=== PATIENT | male | born 1955 | race Caucasian/White ===

== ENCOUNTER → 2017-10-06 13:38 | Outpatient (CLI) | payer OTHER, SELFPAY ==
[2017-10-06 16:50] LABS: Absolute Lymphocyte Count 2.21 X10^3/ul (0.83-4.51); Absolute Neutrophil Count 6.2 X10^3/uL (2.0-7.7); Basophil# 0.04 X10^3/uL; Basophil% 0.4 % (0-1); Eosinophil# 0.14 X10^3/uL; Eosinophils% 1.5 % (0-5); Hemoglobin 17.1 g/dl (13.0-16.5); Lymphocyte # 2.21 X10^3/ul (4.0); Lymphocyte % 23.5 % (19-41); Mean Corp Hgb Conc 33.5 g/gl (32-36); Mean Corpuscular Hgb 29.3 pg (27.0-32.0); Mean Corpuscular Volume 87.3 fL (80-94); Mean Platelet Vol. 10.3 fl (6.2-12.0); Monocyte# 0.76 X10^3/uL; Monocyte% 8.1 % (0-10); Neutrophil # 6.24 X10^3/uL (2.7-7.7); Neutrophil % 66.4 % (47-70); Platelet Count 268 K/mm3 (150-450); RBC Distribution Width CV 13.3 % (11.6-14.6); RBC Distribution Width SD 41.9 fl (35.1-43.9); Red Blood Count 5.84 M/mm3 (4.6-6.2); White Blood Count 9.4 K/mm3 (4.4-11.0)
[2017-10-06 16:53] LABS: POSITIVE COUNT NO; POSITIVE DIFFERENTIAL NO; POSITIVE MORPHOLOGY NO
[2017-10-06 17:49] LABS: AST(SGOT) 26 U/L (15-37); Alanine Aminotransfer ALT/SGPT 49 U/L (16-61); Albumin, Serum 4.1 g/dL (3.2-5.0); Alkaline Phosphatase 71 U/L (45-117); Anion Gap 10 (5-15); BUN 28 mg/dL (7-18); BUN/Creat Ratio 21.4 RATIO (10-20); Chloride 104 mmol/L (98-107); Creatinine, Serum 1.31 mg/dL (0.70-1.30); EST Glomerular Filtration Rate 59 mL/min (>60); Est Glom Filt Rate - Afr Amer 71 mL/min (>60); Glucose 106 mg/dL (70-110); Potassium 3.8 mmol/L (3.5-5.1); Protein, Total 8.1 g/dL (6.4-8.2); Sodium Level 141 mmol/L (136-145); Thyroid Stim Hormone (TSH) 1.52 uIU/mL (0.358-3.74)
[2017-10-08 11:54] LABS: Hep C Antibodies <0.1 s/co ratio (0.0-0.9)
== END ==
PROVIDERS: Family Provider Family Medicine Geriatric Medicine; PCP Family Medicine Geriatric Medicine; Visit Provider Family Medicine Geriatric Medicine
DX: I10 Essential (primary) hypertension (principal); Z13.89 Encounter for screening for other disorder; Z12.5 Encounter for screening for malignant neoplasm of prostate
CPT/HCPCS: 36415; 80053; 84443; 85025; 86803

== ENCOUNTER → 2017-11-23 15:37 | Outpatient (CLI) | payer OTHER, SELFPAY ==
[2017-11-23 15:50] LABS: Absolute Lymphocyte Count 1.84 X10^3/ul (0.83-4.51); Absolute Neutrophil Count 6.1 X10^3/uL (2.0-7.7); Basophil# 0.05 X10^3/uL; Basophil% 0.5 % (0-1); Eosinophils% 2.2 % (0-5); Hemoglobin 16.9 g/dl (13.0-16.5); Lymphocyte # 1.84 X10^3/ul (4.0); Lymphocyte % 19.8 % (19-41); Mean Corp Hgb Conc 35.2 g/gl (32-36); Mean Corpuscular Hgb 29.5 pg (27.0-32.0); Mean Corpuscular Volume 83.8 fL (80-94); Mean Platelet Vol. 9.4 fl (6.2-12.0); Monocyte# 1.05 X10^3/uL; Monocyte% 11.3 % (0-10); Neutrophil # 6.11 X10^3/uL (2.7-7.7); Platelet Count 275 K/mm3 (150-450); RBC Distribution Width CV 13.3 % (11.6-14.6); RBC Distribution Width SD 41.2 fl (35.1-43.9); Red Blood Count 5.73 M/mm3 (4.6-6.2); White Blood Count 9.3 K/mm3 (4.4-11.0)
[2017-11-23 15:58] LABS: POSITIVE COUNT NO; POSITIVE DIFFERENTIAL NO; POSITIVE MORPHOLOGY NO
[2017-11-23 16:18] LABS: AST(SGOT) 39 U/L (15-37); Alanine Aminotransfer ALT/SGPT 41 U/L (16-61); Albumin, Serum 3.8 g/dL (3.2-5.0); Alkaline Phosphatase 74 U/L (45-117); Anion Gap 7 (5-15); BUN 46 mg/dL (7-18); BUN/Creat Ratio 26.3 RATIO (10-20); Calcium,Total 8.7 mg/dL (8.5-10.1); Chloride 109 mmol/L (98-107); Creatinine, Serum 1.75 mg/dL (0.70-1.30); EST Glomerular Filtration Rate 42 mL/min (>60); Est Glom Filt Rate - Afr Amer 51 mL/min (>60); Globulin 3.7 g/dL (2.2-4.2); Glucose 116 mg/dL (74-106); Protein, Total 7.5 g/dL (6.4-8.2); Sodium Level 140 mmol/L (136-145)
== END ==
PROVIDERS: Family Provider Family Medicine Geriatric Medicine; PCP Family Medicine Geriatric Medicine; Visit Provider Family Medicine Geriatric Medicine
DX: R19.5 Other fecal abnormalities (principal)
CPT/HCPCS: 36415; 80053; 85025

== ENCOUNTER 2022-03-12 14:03 | Emergency (ER) | payer OTHER, SELFPAY ==
[2022-03-12 14:04] VITALS: BP 134/77; PULSE 74; RESP 15; TEMP 36.4; O2SAT 98; BMI 31.1
--- NOTE | 2022-03-12 14:12 | EKG12_ITS ---
Test Reason : Blood Pressure : / mmHG Vent. Rate : 071 BPM Atrial Rate : 071 BPM P-R Int : 174 ms QRS Dur : 086 ms QT Int : 402 ms P-R-T Axes : 053 067 043 degrees QTc Int : 436 ms Normal sinus rhythm Normal ECG Confirmed by EMERITA RICHARDSON, REMINGTON ([id number]), market editor AMAN JARA ([id number]) on 03/14/2022 9:27:59 AM Referred By: Confirmed By:REMINGTON FELDER MD
[2022-03-12 14:13] VITALS: BP 134/77; PULSE 74; RESP 15; TEMP 36.4; O2SAT 98
[2022-03-12 14:24] LABS: Absolute Neutrophil Count 10.3 X10^3/uL (2.0-7.7); Basophil# 0.06 X10^3/uL; Basophil% 0.5 % (0-1); Eosinophil# 0.11 X10^3/uL; Eosinophils% 0.8 % (0-5); Hematocrit 44.8 % (40-54); Hemoglobin 15.7 g/dL (13.0-16.5); Lymphocyte % 12.1 % (19-41); Mean Corpuscular Hgb 30.2 pg (27.0-32.0); Mean Corpuscular Volume 86.2 fL (80-94); Mean Platelet Vol. 9.2 fl (6.2-12.0); Monocyte# 1.16 X10^3/uL; Monocyte% 8.7 % (0-10); NRBC Flagged by Analyzer 0 % (0-5); Neutrophil # 10.29 X10^3/uL (2.7-7.7); Neutrophil % 77.5 % (47-70); Platelet Count 286 K/mm3 (150-450); RBC Distribution Width CV 12.6 % (11.6-14.6); RBC Distribution Width SD 39.8 fl (35.1-43.9); White Blood Count 13.3 K/mm3 (4.4-11.0)
--- NOTE | 2022-03-12 14:35 | RAD_ITS ---
STUDY: X-RAY CHEST REASON FOR EXAM: Male, 66 years old. Shortness of breath and chest heaviness. TECHNIQUE: Single AP portable view of the chest. COMPARISON: None. FINDINGS: The lungs are clear and expanded. Scattered calcified granulomas. There is no demonstrated pleural abnormality. Normal size heart. Normal mediastinum and kathleen. Normal visualized pulmonary arteries. There is atherosclerotic calcification of the aortic arch with tortuosity. Normal visualized thoracic spine. Normal visualized ribs, clavicles, and shoulders. There is no demonstrated abnormality of the visualized soft tissue structures of the upper abdomen. RAD/Chest 1 View (Portable) IMPRESSION: No acute abnormality is seen. Electronically Signed: Kodak Elder MD at 14:53 EDT ,
[2022-03-12 14:36] VITALS: O2SAT 98
[2022-03-12 14:42] LABS: Anion Gap 4 (5-15); BUN 23 mg/dL (7-18); BUN/Creat Ratio 19.7 RATIO (10-20); Calcium,Total 9.3 mg/dL (8.5-10.1); Chloride 108 mmol/L (98-107); Creatinine, Serum 1.17 mg/dL (0.70-1.30); EST Glomerular Filtration Rate 66 mL/min (>60); Est Glom Filt Rate - Afr Amer 80 mL/min (>60); Estimated Creatinine Clearance 59.27 ml/min; Glucose 101 mg/dL (74-106); Potassium 3.9 mmol/L (3.5-5.1); Sodium Level 140 mmol/L (136-145); Troponin-I HS (w/2H Reflex) 4 pg/mL (3.0-78.0)
--- NOTE | 2022-03-12 14:45 | EDS_ITS ---
HPI <OLAYINKA Bhatt - Last Filed: 03/12/22 17:13> History of Present Illness Chief Complaint: Chest Pain Narrative Narrative: 66-year-old male with past medical history of hypertension, hyperlipidemia, SANYA, tobacco use presents with chest pain. He states he ate 3 slices of double pepperoni pizza last night and then went to bed right afterward. He had chest heaviness and discomfort that woke him up several times overnight. It did improve after he got up in the morning but continues to still be there at a low level. It is not exertional or pleuritic. He was nauseated last night but now feels fine and has had no vomiting. No shortness of breath. There is no radiation of the pain. He has a 37-year pack history. He has no personal cardiac history but his dad from an [place] in his 70s. Patient states he had a stress test 10 years ago and they had told him he may have had a previous LA. PFSH <OLAYINKA Bhatt - Last Filed: 03/12/22 17:13> [facility] Medical History (Updated 03/12/22 @ 15:45 by OLAYINKA Bhatt) Continuous tobacco abuse Hyperlipidemia Hypertension Myocardial infarct, old Obstructive sleep apnea Home Medications simvastatin 40 mg tablet 40 mg PO QHS 07/17/16 [History Last Taken Unknown] valsartan 320 mg-hydrochlorothiazide 12.5 mg tablet 1 ea PO DAILY 07/17/16 [Hist ory Last Taken Unknown] terbinafine HCl 250 mg tablet 250 mg PO QDAY 12/25/17 [History Last Taken Unknown] famotidine 20 mg tablet (Pepcid) 20 mg PO DAILY #14 tabs 03/12/22 [Rx Last Taken Unknown] tamsulosin 0.4 mg capsule 1 cap PO DAILY 03/12/22 [History Last Taken Unknown] Allergy/AdvReac Type Severity Reaction Status Date / Time No Known Allergies Allergy Verified 03/12/22 14:05 Surgical History (Updated 12/25/17 @ 14:02 by Rowena London) H/O bilateral inguinal hernia repair History of umbilical hernia repair Social History Smoking Status: Current every day smoker tobacco type: cigarettes ROS <OLAYINKA Bhatt - Last Filed: 03/12/22 17:13> ROS ED ROS Narrative Constitutional: Negative for fever, chills, malaise. Eyes: Negative for visual change. ENT: Negative for sore throat, ear pain, rhinorrhea. CVS: Positive for chest pain. Negative for palpitations, syncope. Respiratory: Negative for shortness of breath, cough, orthopnea. GI: Positive for nausea. Negative for abdominal pain, vomiting, diarrhea, constipation, melena, hematochezia. : Negative for dysuria, hematuria or frequency. Neuro: Negative for headache, motor/sensory dysfunction. Skin: Negative for rash, abscess, or wound. Musc: Negative for joint pain, swelling, trauma. Heme: Negative for easy bruising, bleeding, lymphadenopathy. EXAM <Makayla Borjas PA - Last Filed: 03/12/22 17:13> Physical Exam Narrative Exam Narrative: CONST: Patient sitting in no acute distress. EYES: Normal inspection. NECK: Normal inspection. RESP: No respiratory distress, CTAB. CVS: Regular rate and rhythm, no murmur, no gallop. ABD: Soft and nontender, no guarding or rebound, nondistended. SKIN: Color normal, no rash, warm, dry, intact. EXTREMITIES: Normal appearance, no pedal edema. NEURO: Oriented x4. PSYCH: Normal affect. Const Vital Signs: 03/12/22 14:04 03/12/22 14:13 03/12/22 14:34 Temperature 97.5 F L 97.5 F L Temperature Source Temporal Temporal Pulse Rate 74 74 Respiratory Rate 15 15 Respiratory Effort Normal Blood Pressure 134/77 H 134/77 H Blood Pressure Mean 96 96 Pulse Ox 98 98 Oxygen Delivery Method Room Air Room Air 03/12/22 14:36 03/12/22 15:11 03/12/22 16:03 Temperature Temperature Source Pulse Rate 69 72 Respiratory Rate 12 16 Respiratory Effort Blood Pressure 141/87 H 150/86 H Blood Pressure Mean 105 107 Pulse Ox 98 97 97 Oxygen Delivery Method Room Air Room Air Room Air <Dr. Dejan Hernadez DO - Last Filed: 03/12/22 15:40> Physical Exam Const Vital Signs: 03/12/22 14:04 03/12/22 14:13 03/12/22 14:34 Temperature 97.5 F L 97.5 F L Temperature Source Temporal Temporal Pulse Rate 74 74 Respiratory Rate 15 15 Respiratory Effort Normal Blood Pressure 134/77 H 134/77 H Blood Pressure Mean 96 96 Pulse Ox 98 98 Oxygen Delivery Method Room Air Room Air 03/12/22 14:36 03/12/22 15:11 03/12/22 16:03 Temperature Temperature Source Pulse Rate 69 72 Respiratory Rate 12 16 Respiratory Effort Blood Pressure 141/87 H 150/86 H Blood Pressure Mean 105 107 Pulse Ox 98 97 97 Oxygen Delivery Method Room Air Room Air Room Air <OLAYINKA Bhatt - Last Filed: 03/12/22 17:13> Heart Score History: Slightly/Non-Suspicious ECG: Normal Age: >/= 65 years Risk Factors: >/= 3 Risk Factors or History of CAD Troponin: </= Normal Limit Score: 4 <Dr. Dejan Hernadez DO - Last Filed: 03/12/22 15:40> Heart Score Score: 4 MDM <OLAYINKA Bhatt - Last Filed: 03/12/22 17:13> MDM MDM Narrative Medical decision making narrative: Patient presents with chest pain that started after eating pizza and then lying down in bed last night. Has persisted today. He has no other associated symptoms. He appears well and nontoxic. Vital signs within normal limits. Heart is regular, lungs clear, abdomen soft and nontender. No lower extremity swelling or tenderness present. EKG is sinus rhythm with no ischemia and troponin x2 WNL. Basic labs show white count of 13 but are otherwise unremarkable. Chest x-ray negative. Patient symptoms are more consistent with GERD and he was given Pepcid and prescribed this for home. If any symptoms worsen he should return to the ER, otherwise follow-up with his doctor. 1. Atypical chest pain 2. GERD Lab Data Attestation: I reviewed the patient's lab results. Labs: Laboratory Results - last 24 hr 03/12/22 03/12/22 03/12/22 14:11 14:11 16:34 WBC 13.3 H RBC 5.20 Hgb 15.7 Hct 44.8 MCV 86.2 MCH 30.2 MCHC 35.0 RDW Std Deviation 39.8 RDW Coeff of Amilcar 12.6 Plt Count 286 MPV 9.2 Immature Gran % (Auto) 0.400 Neut % (Auto) 77.5 H Lymph % (Auto) 12.1 L [place] % (Auto) 8.7 Eos % (Auto) 0.8 Baso % (Auto) 0.5 Absolute Neuts (auto) 10.3 H Absolute Lymphs (auto) 1.60 Nucleated RBC % 0 Sodium 140 Potassium 3.9 Chloride 108 H Carbon Dioxide 28.0 Anion Gap 4 L BUN 23 H Creatinine 1.17 Estim Creat Clear Calc 59.27 Est GFR (MDRD) Af Amer 80 Est GFR (MDRD) Non-Af 66 BUN/Creatinine Ratio 19.7 Glucose 101 Calcium 9.3 Troponin I High Sens 4 4 Radiography Diagnostic Testing: Clinical Impression(s) from Imaging Studies Chest X-Ray 03/12/22 14:35 IMPRESSION: No acute abnormality is seen. Electronically Signed: Kodak Elder MD at 14:53 EDT , ED attending interpretation shows normal heart size, no acute infiltrate, edema, or effusion. EKG Initial EKG: Attestation: I personally reviewed and interpreted this EKG as follows: Interpretation: Sinus Rhythm and No Acute Injury Pattern Comments: Normal sinus rhythm at 71 bpm, no ischemic changes <Dr. Dejan Hernadez, DO - Last Filed: 03/12/22 15:40> [facility] MDM Narrative Medical decision making narrative: Patient presents with chest pain that started after eating pizza and then lying down in bed last night. Has persisted today. He has no other associated symptoms. He appears well and nontoxic. Vital signs within normal limits. Heart is regular, lungs clear, abdomen soft and nontender. No lower extremity swelling or tenderness present. EKG is sinus rhythm with no ischemia and troponin x2 WNL. Basic labs show white count of 13 but are otherwise unremarkable. Chest x-ray negative. Patient symptoms are more consistent with GERD and he was given Pepcid and prescribed this for home. If any symptoms worsen he should return to the ER, otherwise follow-up with his doctor. 1. Atypical chest pain 2. GERD I performed a history and physical examination of the patient and discussed management plan with the physician assistant manager airside operations. I reviewed the physician assistant manager airside operations's note and agree with the documented findings and plan of care. Pain began last night after eating pizza. He states he feels a pressure-like sensation epigastrium lower to mid chest. EKG is in sinus rhythm. Patient initial troponin is 4. We will proceed with a delta troponin. Potation of the chest x-ray is no acute process. Dejan Hernadez DO, MS Lab Data Labs: Laboratory Results - last 24 hr 03/12/22 03/12/22 03/12/22 14:11 14:11 16:34 WBC 13.3 H RBC 5.20 Hgb 15.7 Hct 44.8 MCV 86.2 MCH 30.2 MCHC 35.0 RDW Std Deviation 39.8 RDW Coeff of Amilcar 12.6 Plt Count 286 MPV 9.2 Immature Gran % (Auto) 0.400 Neut % (Auto) 77.5 H Lymph % (Auto) 12.1 L [place] % (Auto) 8.7 Eos % (Auto) 0.8 Baso % (Auto) 0.5 Absolute Neuts (auto) 10.3 H Absolute Lymphs (auto) 1.60 Nucleated RBC % 0 Sodium 140 Potassium 3.9 Chloride 108 H Carbon Dioxide 28.0 Anion Gap 4 L BUN 23 H Creatinine 1.17 Estim Creat Clear Calc 59.27 Est GFR (MDRD) Af Amer 80 Est GFR (MDRD) Non-Af 66 BUN/Creatinine Ratio 19.7 Glucose 101 Calcium 9.3 Troponin I High Sens 4 4 Radiography Diagnostic Testing: Clinical Impression(s) from Imaging Studies Chest X-Ray 03/12/22 14:35 IMPRESSION: No acute abnormality is seen. Electronically Signed: Kodak Elder MD at 14:53 EDT , Discharge Plan Triage Chief Complaint: Chest Pain ED Midlevel Provider: Makayla Borjas ED Provider: Dejan Hernadez Dx/Rx/DC Orders Clinical Impression: Chest pain due to gastrointestinal reflux disease Instructions: ED Chest Pain, Noncardiac, ED GERD (Adult) Prescriptions: New famotidine [Pepcid] 20 mg tablet 20 mg PO DAILY Qty: 14 0RF No Action terbinafine HCl 250 mg tablet 250 mg PO QDAY simvastatin 40 MG tablet 40 mg PO QHS Label Comments: CHOLESTEROL valsartan-hydrochlorothiazide 1 EACH tablet 1 ea PO DAILY tamsulosin 0.4 mg capsule 1 cap PO DAILY Label Comments: TAKE 1 CAPSULE BY MOUTH DAILY AT BEDTIME Primary Care Provider: Ulysses Perera Referrals: Roshan Allen Chi, MD [COURTESY STAFF PHYSICIAN] - Activity Restrictions/Additional Instructions: Your EKG and blood work look normal. No sign of heart attack. I suspect your chest pain is from GERD or gastric reflux. I prescribed Pepcid to take once a day for the next 14 days. If any symptoms worsen you should come back to the ER, otherwise follow-up with your family doctor. Avoid eating fried or spicy foods and avoid lying down for at least 2 hours after eating. Disposition Disposition: Home, Self Care
[2022-03-12] MEDS: Famotidine 200 MG/20 ML MDV 20 MG in 0.9% Normal Saline (Pres. free 8 ML 300 MG IV (15:08)
[2022-03-12 15:11] VITALS: BP 141/87; PULSE 69; RESP 12; O2SAT 97
[2022-03-12 16:03] VITALS: BP 150/86; PULSE 72; RESP 16; O2SAT 97
[2022-03-12 16:21] LABS: Reflex Troponin-HS? (from REC) Y
[2022-03-12 17:05] LABS: Troponin-I HS 4 pg/mL (3.0-78.0)
[2022-03-12 17:17] VITALS: RESP 16
== END 2022-03-12 17:23 | disposition home or self-care (01) ==
PROVIDERS: Emergency Provider Emergency Medicine; PCP Family Medicine; Visit Provider Emergency Medicine
DX: R07.9 Chest pain, unspecified (principal); K21.9 Gastro-esophageal reflux disease without esophagitis; I10 Essential (primary) hypertension; E78.5 Hyperlipidemia, unspecified; F17.210 Nicotine dependence, cigarettes, uncomplicated; I25.2 Old myocardial infarction; G47.33 Obstructive sleep apnea (adult) (pediatric); Z79.899 Other long term (current) drug therapy
CPT/HCPCS: 71045; 80048; 84484; 85025; 93005; 99284; A4216; J3490

== ENCOUNTER 2022-10-22 16:41 | Emergency (ER) | payer OTHER, SELFPAY ==
[2022-10-22 16:42] VITALS: BP 140/78; PULSE 59; RESP 14; TEMP 36.2; O2SAT 97; BMI 31.2
--- NOTE | 2022-10-22 17:30 | RAD_ITS ---
EXAM: XR CHEST, 1 VIEW CLINICAL INDICATION: chest pain TECHNIQUE: Frontal view of the chest. This report was created using [employer] report generation technology. COMPARISON: 03.12.22 FINDINGS: LUNGS AND PLEURAL SPACES: Unremarkable. No consolidation or edema. No pneumothorax. No effusion. HEART: Unremarkable. Cardiac silhouette not enlarged. MEDIASTINUM: Central airways and mediastinal contour are unremarkable. BONES/JOINTS: Unremarkable. SOFT TISSUES: Unremarkable. RAD/Chest 1 View (Portable) IMPRESSION: No radiographic evidence of acute cardiopulmonary disease. Electronically Signed: Mike Dobson MD at 17:53 EST ,
[2022-10-22 18:41] LABS: Absolute Lymphocyte Count 2.04 X10^3/uL (0.83-4.51); Absolute Neutrophil Count 5.7 X10^3/uL (2.0-7.7); Basophil# 0.04 X10^3/uL; Basophil% 0.5 % (0-1); Eosinophil# 0.14 X10^3/uL; Eosinophils% 1.6 % (0-5); Hematocrit 47.2 % (40-54); Hemoglobin 16.2 g/dL (13.0-16.5); Lymphocyte # 2.04 X10^3/ul (0.83-4.51); Lymphocyte % 23.4 % (19-41); Mean Corp Hgb Conc 34.3 g/dL (32-36); Mean Corpuscular Hgb 29.6 pg (27.0-32.0); Mean Corpuscular Volume 86.3 fL (80-94); Mean Platelet Vol. 9.4 fl (6.2-12.0); Monocyte# 0.81 X10^3/uL; Monocyte% 9.3 % (0-10); NRBC Flagged by Analyzer 0 % (0-5); Neutrophil # 5.65 X10^3/uL (2.7-7.7); Neutrophil % 64.7 % (47-70); Platelet Count 269 K/mm3 (150-450); RBC Distribution Width CV 12.5 % (11.6-14.6); RBC Distribution Width SD 39.6 fl (35.1-43.9); Red Blood Count 5.47 M/mm3 (4.6-6.2); White Blood Count 8.7 K/mm3 (4.4-11.0)
[2022-10-22 18:59] LABS: Anion Gap 7 (5-15); BUN 23 mg/dL (7-18); BUN/Creat Ratio 20.7 RATIO (10-20); Calcium,Total 9.1 mg/dL (8.5-10.1); Chloride 108 mmol/L (98-107); Creatinine, Serum 1.11 mg/dL (0.70-1.30); EST Glomerular Filtration Rate 70 mL/min (>60); Est Glom Filt Rate - Afr Amer 85 mL/min (>60); Estimated Creatinine Clearance 61.62 ml/min; Glucose 128 mg/dL (74-106); Potassium 3.8 mmol/L (3.5-5.1); Sodium Level 141 mmol/L (136-145); Troponin-I HS 7 pg/mL (3.0-78.0)
--- NOTE | 2022-10-22 19:15 | EDS_ITS ---
HPI History of Present Illness Chief Complaint: Chest Pain Detail of Chief Complaint: Left lateral discomfort. Informant: patient Onset/Context/Timing Onset: Today and Hours Activity at onset: gradual Timing: Intermittent Quality: Positive for Dull Location: Left Chest Current Severity: Mild Maximum Severity: Mild Worsened By: Nothing Relieved By: Nothing Associated Symptoms: Negative for Nausea, Vomiting, Diaphoresis, Dyspnea, Cough, Fever, Lightheadedness, Acid Reflux or Palpitations Narrative Narrative: 67-year-old male history of hypertension and prior silent NJ. Reportedly had a stress test in the last 2 to 3 years which was negative. States that today around 8:30 in the morning he had some left-sided chest discomfort at rest. 3-year-old lasted 1 to 2 minutes and resolved. Its been intermittent throughout the day. He describes it as a dull sensation. No radiation to his neck, jaw, arm or back. Denies any nausea, diaphoresis or shortness of breath. Not associated with exertion. States he had a silent NJ in the past that they saw on the stress test that they did but he is never had a heart catheterization. He does smoke. He has never had a DVT or PE and no risk factors. No leg pain or swelling. No hemoptysis. No pleuritic pain. Prior Similar Symptoms: Yes Recent Illness/Hospitalization: No CVD Risk Factors: Positive for Hypertension and Smoking; Negative for Diabetes PE Risk Factors: Negative for Recent Travel/Surgery, Recent Immobilization, Prior DVT or PE, Cancer or OCP + Smoking + >/=35 PFSH PFSH Medical History Continuous tobacco abuse Hyperlipidemia Hypertension Myocardial infarct, old Obstructive sleep apnea Home Medications simvastatin 40 mg tablet 40 mg PO QHS 07/17/16 [History Last Taken Unknown] valsartan 320 mg-hydrochlorothiazide 12.5 mg tablet 1 ea PO DAILY 07/17/16 [History Last Taken Unknown] tamsulosin 0.4 mg capsule 1 cap PO DAILY 03/12/22 [History Last Taken Unknown] amlodipine 5 mg tablet 5 mg PO DAILY 10/22/22 [History Last Taken Unknown] amoxicillin 500 mg capsule 500 mg PO Q6H 10/22/22 [History Last Taken Unknown] Allergy/AdvReac Type Severity Reaction Status Date / Time No Known Allergies Allergy Verified 10/22/22 16:42 Surgical History H/O bilateral inguinal hernia repair History of umbilical hernia repair Social History Smoking Status: Current every day smoker tobacco type: cigarettes ROS ROS ED ROS Narrative Atypical left-sided chest pain. Nonexertional. No other symptoms. Review of Systems ROS Unobtainable: Denies due to encephalopathy Constitutional Constitutional ED: Denies chills or fever(s) Eyes Eyes: Reports none ENT ENT ED: Denies ear pain Cardiovascular Cardiovascular: Reports as per HPI and chest pain; Denies palpitations or racing heartbeat Respiratory/Chest Respiratory/Chest: Denies cough or dyspnea Gastrointestinal Gastrointestinal: Denies abdominal pain, constipation, diarrhea, melena or nausea Genitourinary Genitourinary ED: Denies dysuria or hematuria Musculoskeletal Musculoskeletal: Denies arthralgias Integumentary Denies abscess or Abrasions Neurologic Neurologic: Denies headache(s) Psychiatric Psychiatric: Denies anxiety Endocrine Endocrinology: Denies cold intolerance Hematologic/Lymphatic Hematologic/Lymphatic: Denies easy bleeding or easy bruising Allergic/Immunologic Allergic/Immunologic ED: Denies mouth swelling or tongue swelling EXAM Physical Exam Narrative Exam Narrative: 67-year-old male no acute distress. Vital signs are stable afebrile. Pulse ox 97% on room air no signs hypoxia. Family at bedside. H EENT exam unremarkable. Neck nontender no JVD. Lungs clear to auscultation bilaterally. Heart regular rhythm no murmur. Chest wall completely nontender. No ecchymosis or bruising. No subcu air or crepitance. No rashes. Abdomen soft nontender normal bowel sounds no peritoneal signs. Moving all 4 extremities. Calves are nontender without edema or cords. Equal symmetrical radial pulses. Back and chest wall are nontender. Neurologically awake and alert. Const Vital Signs: 10/22/22 16:42 10/22/22 18:35 Temperature 97.1 F L Temperature Source Temporal Pulse Rate 59 L Respiratory Rate 14 Blood Pressure 140/78 H Blood Pressure Mean 98 Pulse Ox 97 Oxygen Delivery Method Room Air Room Air Positive well nourished and well developed; Negative for cachectic, contractures or unkempt General Appearance ED: well developed and NAD; Negative for unkempt, cachectic, contractures or pallor Nutritional Appearance: Negative for cachectic HEENT Reports moist mucous membranes normocephalic and atraumatic; Negative for trauma or tenderness Eyes PERRL and EOMs intact bilaterally General Eye ED: Negative for pale conjunctiva, scleral icterus or other Neck no lymphadenopathy, supple and no JVD General: Negative for tenderness Chest Wall inspection of chest normal and palpation of chest normal Chest: Negative for tenderness Resp normal respiratory effort and clear to auscultation bilaterally Effort and Inspection: Negative for respiratory distress Auscultation: Negative for rales, rhonchi or wheezes Cardio regular rate, regular rhythm, S1 normal heart sound, S2 normal heart sound and no murmurs Rate: Negative for bradycardia or tachycardic Rhythm: Negative for abnormal rhythm Peripheral Pulses: pulses 2+ throughout GI normal to inspection, nondistended, normoactive bowel sounds, soft to palpation, non-tender, non-distended and no masses Back/Spine no CVA tenderness and no thoracic nor lumbar tenderness General Back: Negative for CVA tenderness Cervical Spine: Negative for cervical spine tenderness Extremity normal to inspection General Extremety ED: Negative for edema, pulses abnormal or tenderness General Extremity: Negative for edema or pulses abnormal Neuro oriented x3, CN's II-XII intact bilaterally and no sensory deficits noted Sensorium / Orientation: awake, alert, oriented to person, oriented to place and oriented to time; Negative for confused, lethargic or stuporous Motor Exam: strength 5/5 throughout Psych mental status grossly normal Appearance: Negative for unkempt Attitude: No agitated Mood & Affect: Negative for depressed, anxious or tearful Skin no rashes or lesions noted and no wounds General Skin Exam: Negative for jaundice or pallor Rashes: No rashes noted Heart Score History: Slightly/Non-Suspicious ECG: Normal Age: >/= 65 years Risk Factors: 1 or 2 Risk Factors Troponin: </= Normal Limit Score: 3 MDM MDM MDM Narrative Medical decision making narrative: 67-year-old male with atypical nonexertional chest discomfort throughout the day. Not reproducible. Benign exam. Undergo cardiac work-up. Repeat exam patient doing well at 9:15 PM. He and I went over all his test results with his family. They are comfortable with him being discharged home with outpatient follow-up with his primary care physician. Clinically this does not sound like cardiac chest pain. He has no risk factors for DVT or PE. It also does not sound like a dissection. He will be discharged home with outpatient follow-up. Return if worse. Lab Data Attestation: I reviewed the patient's lab results. Lab results narrative: CBC normal. White count 8.7. H&H is 16.2 and 47. Electrolytes unremarkable gap of 7. BUN of 23 creatinine 1.1. Glucose 128. Initial troponin is 7. 2- hour troponin was 7 also. Labs: Laboratory Results - last 24 hr 10/22/22 10/22/22 10/22/22 18:32 18:32 20:15 WBC 8.7 RBC 5.47 Hgb 16.2 Hct 47.2 MCV 86.3 MCH 29.6 MCHC 34.3 RDW Std Deviation 39.6 RDW Coeff of Amilcar 12.5 Plt Count 269 MPV 9.4 Immature Gran % (Auto) 0.500 Neut % (Auto) 64.7 Lymph % (Auto) 23.4 [place] % (Auto) 9.3 Eos % (Auto) 1.6 Baso % (Auto) 0.5 Absolute Neuts (auto) 5.7 Absolute Lymphs (auto) 2.04 Nucleated RBC % 0 Sodium 141 Potassium 3.8 Chloride 108 H Carbon Dioxide 26.0 Anion Gap 7 BUN 23 H Creatinine 1.11 Estim Creat Clear Calc 61.62 Est GFR (MDRD) Af Amer 85 Est GFR (MDRD) Non-Af 70 BUN/Creatinine Ratio 20.7 H Glucose 128 H Calcium 9.1 Troponin I High Sens 7 7 Radiography Chest X-Ray - ED: 1 View, Read by ED Physician, Read by Radiologist, Heart, Lungs, Mediastinum, Bony Structures, No Acute Disease and Chronic Changes Diagnostic Testing: Clinical Impression(s) from Imaging Studies Chest X-Ray 10/22/22 17:30 IMPRESSION: No radiographic evidence of acute cardiopulmonary disease. Electronically Signed: Mike Dobson MD at 17:53 EST , Chest x-ray is normal. Normal cardiac silhouette. Normal mediastinum. Normal lung patel. Interpreted both by myself and radiologist. Rhythm Strip Rhythm Strip: Sinus Rhythm Rate: 63 Ectopy: None EKG Initial EKG: Attestation: I personally reviewed and interpreted this EKG as follows: Interpretation: Sinus Rhythm and No Acute Injury Pattern Comments: Normal sinus rhythm rate of 63 no acute signs of [place] or ischemia. Unchanged from prior EKG from March of last year. Prior EKG tracings: available for review Prior: Unchanged Discharge Plan Triage Chief Complaint: Chest Pain ED Provider: Liam Morales Dx/Rx/DC Orders Clinical Impression: Chest pain, History of hypertension Instructions: ED Chest Pain, Uncertain Cause Prescriptions: No Action simvastatin 40 MG tablet 40 mg PO QHS Label Comments: CHOLESTEROL valsartan-hydrochlorothiazide 1 EACH tablet 1 ea PO DAILY tamsulosin 0.4 mg capsule 1 cap PO DAILY Label Comments: TAKE 1 CAPSULE BY MOUTH DAILY AT BEDTIME amoxicillin 500 mg capsule 500 mg PO Q6H Label Comments: TAKE 1 CAPSULE FOUR TIMES DAILY until gone amlodipine 5 mg tablet 5 mg PO DAILY Primary Care Provider: Ulysses Perera Referrals: Ulysses Perera MD [Primary Care Provider] - 3-5 Days Activity Restrictions/Additional Instructions: Your chest x-ray EKG and all your labs including 2 troponin test were all normal. Unsure of what caused her discomfort. It does not appear to be cardiac at this time. Follow-up with your primary care physician. Return if you are feeling worse. Disposition Disposition: Home, Self Care
[2022-10-22 20:42] LABS: Troponin-I HS 7 pg/mL (3.0-78.0)
[2022-10-22 21:24] VITALS: BP 123/82; PULSE 60; RESP 16; O2SAT 98
== END 2022-10-22 21:24 | disposition home or self-care (01) ==
PROVIDERS: Emergency Provider Emergency Medicine; PCP Family Medicine; Visit Provider Emergency Medicine
DX: R07.9 Chest pain, unspecified (principal); E78.5 Hyperlipidemia, unspecified; I10 Essential (primary) hypertension; F17.210 Nicotine dependence, cigarettes, uncomplicated; G47.33 Obstructive sleep apnea (adult) (pediatric); I25.2 Old myocardial infarction; Z79.899 Other long term (current) drug therapy
CPT/HCPCS: 71045; 80048; 84484; 85025; 93005; 99284; A4216

== ENCOUNTER → 2024-04-07 | Outpatient (CLI) | payer OTHER, SELFPAY ==
--- NOTE | 2024-04-07 13:06 | COLBX_PTH ---
PATIENT: OZZIE BAUTISTA LOC: [facility] U#:[id number] AGE/SX: 68/M ROOM: RE04/07/[address]: Dr. Carline Burdick MD : 1955 BED: DIS: 04/07/2024 SPEC #: [id number] RECD: 04/07/24 15:13 STATUS: JUAN SYLVIE #: [id number] YUE: 04/07/24 13:[address]: Carline Burdick DEPT: SURGICAL PATHOLOGY RECD BY: Kyleigh Enriquez ENTERED: 04/10/24 09:08 SP TYPE: COLON BX OTHR DR: Dr. Ulysses Perera MD Tissues: A - Right colon B - Left colon Procedures: Surgery Specimen Level IV HEADER OPERATION: Colonoscopy PRE-OP DIAGNOSIS: History of polyps TISSUE SUBMITTED: A- Right colon polyp, B- Left colon polyp MICROSCOPIC DIAGNOSIS A. Right colon polyp, biopsy: Tubular adenoma. B. Left colon polyp, biopsy: Fragments of tubular adenoma. / 04/11/2024 MICROSCOPIC DESCRIPTION Slides are reviewed. GROSS DESCRIPTION A. Received in fixative is one container labeled with the patient's name and designated Right colon polyp. The specimen consists of a hernández-pink polyp measuring 0.5 x 0.4 x 0.2cm. The entire specimen is submitted in one cassette. B. Received in fixative is one container labeled with the patient's name and designated Left colon polyp. The specimen consists of two irregular fragments of light hernández soft tissue that in aggregate measure 0.6 x 0.4 x 0.1 cm. The specimen is totally submitted in one cassette. / 04/10/2024 TC:1 CPT:55608h0
== END | disposition home or self-care (01) ==
PROVIDERS: PCP Family Medicine; Referring Provider Surgery; Visit Provider Surgery
DX: D12.6 Benign neoplasm of colon, unspecified (principal)
CPT/HCPCS: 88305